=== PATIENT | female | born 1965 | race Caucasian/White ===

== ENCOUNTER 2017-12-18 08:43 | Emergency (ER) | payer MEDICAID ==
[~2017-12-18] VITALS: Ht 152.4 cm; Wt 64.4 kg
[2017-12-18 08:43] VITALS: BP_SYST 132
[2017-12-18] MEDS ORDERED: KETOROLAC TROMETHAMINE 60 MG/2 ML VIAL IM ONE (09:30)
[2017-12-18 09:31] LABS: BILIRUBIN,URINE NEGATIVE (NEGATIVE); BLOOD, URINE NEGATIVE (NEGATIVE); CLARITY/URINE CLEAR (CLEAR); COLOR,URINE YELLOW (YELLOW); GLUCOSE,URINE NEGATIVE (NEGATIVE); KETONES,URINE NEGATIVE (NEGATIVE); LEUKOCYTE ESTERASE ,URINE NEGATIVE (NEGATIVE); NITRITE, URINE NEGATIVE (NEGATIVE); PROTEIN URINE NEGATIVE (NEGATIVE); UROBILINOGEN,URINE 0.2 (0.2-1.0)
[2017-12-18 10:00] LABS: BASOPHILS % (AUTO) 0.4 % (0.0-2.0); EOSINOPHILS # (AUTO) 0.2 K/uL (0.0-0.4); EOSINOPHILS % (AUTO) 2.6 % (0.0-4.0); HEMATOCRIT 43.5 % (36-48); HEMOGLOBIN 14.2 g/dL (12.0-16.0); LYMPHOCYTES # (AUTO) 1.3 K/uL (1.0-5.5); LYMPHOCYTES % (AUTO) 16.1 % (20.5-51.5); MEAN CORPUSCULAR HEMOGLOBIN 30 pg (27-31); MEAN CORPUSCULAR HGB CONC 33 % (32-36); MEAN CORPUSCULAR VOLUME 92 fL (79.0-98.0); MONOCYTES # (AUTO) 0.3 K/uL (0.0-1.0); MONOCYTES % (AUTO) 4.3 % (1.7-9.3); NEUTROPHILS # (AUTO) 6.2 K/uL (1.8-7.7); NEUTROPHILS % (AUTO) 76.6 % (40.0-70.0); PLATELET COUNT (AUTO) 384 K/uL (130-430); RED BLOOD CELL COUNT(AUTO) 4.72 MIL/uL (4.2-6.2); RED CELL DISTRIBUTION WIDTH 12.3 % (9.0-15.0)
[2017-12-18 10:04] LABS: CALCIUM 9.9 mg/dL (8.4-11.0); CREATININE 0.77 mg/dL (0.55-1.30); POTASSIUM 3.4 mmol/L (3.5-5.1)
[2017-12-18 10:10] LABS: TOTAL BILIRUBIN 0.5 mg/dL (0.0-1.0)
[2017-12-18 10:53] VITALS: BP_SYST 128
== END 2017-12-18 10:53 | disposition home or self-care (01) ==
LOC: SED 08:43
DX: K52.9 Noninfective gastroenteritis and colitis, unspecified (principal); R19.00 Intra-abdominal and pelvic swelling, mass and lump, unspecified site; I10 Essential (primary) hypertension; Z90.710 Acquired absence of both cervix and uterus
CPT/HCPCS: 36415; 74176; 80053; 81003; 83690; 85025; 96372; 99285; J1885

== ENCOUNTER 2018-03-25 11:22 | Emergency (ER) | payer OTHER, MEDICAID ==
[~2018-03-25] VITALS: Ht 152.4 cm; Wt 59.9 kg
[2018-03-25 11:22] VITALS: BP_SYST 131
[2018-03-25 13:49] VITALS: BP_SYST 134
== END 2018-03-25 13:49 | disposition home or self-care (01) ==
LOC: SED 11:22
DX: S33.5XXA Sprain of ligaments of lumbar spine, initial encounter (principal); S23.9XXA Sprain of unspecified parts of thorax, initial encounter; J45.909 Unspecified asthma, uncomplicated; I10 Essential (primary) hypertension; F41.9 Anxiety disorder, unspecified; Z90.710 Acquired absence of both cervix and uterus; X58.XXXA Exposure to other specified factors, initial encounter; Y93.89 Activity, other specified; Y92.89 Other specified places as the place of occurrence of the external cause; Y99.8 Other external cause status
CPT/HCPCS: 72128; 72131; 99284

== ENCOUNTER 2018-05-17 22:41 | Emergency (ER) | payer OTHER, MEDICAID ==
[~2018-05-17] VITALS: Ht 154.9 cm; Wt 63.5 kg
[2018-05-17 23:05] VITALS: BP_SYST 139
[2018-05-17 23:46] LABS: BILIRUBIN,URINE NEGATIVE (NEGATIVE); BLOOD, URINE 3+ (NEGATIVE); CLARITY/URINE CLOUDY (CLEAR); COLOR,URINE RED (YELLOW); GLUCOSE,URINE NEGATIVE (NEGATIVE); KETONES,URINE TRACE (NEGATIVE); LEUKOCYTE ESTERASE ,URINE 2+ (NEGATIVE); NITRITE, URINE POSITIVE (NEGATIVE); PROTEIN URINE 3+ (NEGATIVE)
[2018-05-18 00:14] LABS: BACTERIA,URINE None Seen /HPF (None Seen); RBC,URINE >100 /HPF (0-3)
[2018-05-18] MEDS ORDERED: IBUPROFEN 800 MG TABLET PO ONE (00:15)
[2018-05-18] MEDS ORDERED: cefTRIAXone 1 GM VIAL IM ONE (00:15)
[2018-05-18 00:41] VITALS: BP_SYST 126
== END 2018-05-18 00:41 | disposition home or self-care (01) ==
LOC: SED 22:41
DX: N39.0 Urinary tract infection, site not specified (principal); J45.909 Unspecified asthma, uncomplicated; I10 Essential (primary) hypertension
CPT/HCPCS: 81000; 81025; 87086; 87186; 96372; 99284; J0696

== ENCOUNTER 2018-08-13 08:44 | Emergency (ER) | payer OTHER, MEDICAID ==
[~2018-08-13] VITALS: Ht 154.9 cm; Wt 63.5 kg
[2018-08-13 08:44] VITALS: BP_SYST 154
[2018-08-13] MEDS ORDERED: IPRATROPIUM BROM 0.5 MG/2.5 ML VIAL.NEB (ATROVENT) IH ONE (09:15)
[2018-08-13] MEDS ORDERED: ALBUTEROL SULFATE 0.083% 2.5 MG/3 ML VIAL.NEB IH ONE (09:15)
[2018-08-13 09:45] LABS: BASOPHILS # (AUTO) 0.1 K/uL (0.0-0.2); BASOPHILS % (AUTO) 0.7 % (0.0-2.0); EOSINOPHILS # (AUTO) 0.2 K/uL (0.0-0.4); EOSINOPHILS % (AUTO) 2.4 % (0.0-4.0); HEMATOCRIT 41.5 % (36-48); HEMOGLOBIN 13.8 g/dL (12.0-16.0); LYMPHOCYTES # (AUTO) 1.6 K/uL (1.0-5.5); LYMPHOCYTES % (AUTO) 21.2 % (20.5-51.5); MEAN CORPUSCULAR HEMOGLOBIN 31 pg (27-31); MEAN CORPUSCULAR HGB CONC 33 % (32-36); MEAN CORPUSCULAR VOLUME 93 fL (79.0-98.0); MONOCYTES # (AUTO) 0.3 K/uL (0.0-1.0); MONOCYTES % (AUTO) 4.1 % (1.7-9.3); NEUTROPHILS # (AUTO) 5.2 K/uL (1.8-7.7); NEUTROPHILS % (AUTO) 71.6 % (40.0-70.0); PLATELET COUNT (AUTO) 317 K/uL (130-430); RED BLOOD CELL COUNT(AUTO) 4.49 MIL/uL (4.2-6.2); RED CELL DISTRIBUTION WIDTH 12.7 % (9.0-15.0); WHITE BLOOD COUNT (AUTO) 7.4 K/uL (4.8-10.8)
[2018-08-13 09:56] LABS: CALCIUM 10.3 mg/dL (8.4-11.0); CREATININE 0.84 mg/dL (0.55-1.30); PROTHROMBIN TIME 9.8 SECS (9.5-12.5)
[2018-08-13] MEDS ORDERED: POTASSIUM CHLORIDE 20 MEQ TAB.PRT.SR PO ONE (10:00)
[2018-08-13 10:01] LABS: ALBUMIN 3.8 g/dL (3.4-4.8); TOTAL BILIRUBIN 0.8 mg/dL (0.0-1.0)
[2018-08-13 12:17] VITALS: BP_SYST 124
== END 2018-08-13 12:17 | disposition home or self-care (01) ==
LOC: SED 08:44
DX: R06.02 Shortness of breath (principal); E87.6 Hypokalemia; I10 Essential (primary) hypertension; E78.00 Pure hypercholesterolemia, unspecified; J45.909 Unspecified asthma, uncomplicated
CPT/HCPCS: 36415; 71045; 80053; 83880; 84484; 85025; 85379; 85610; 85730; 93005; 94640; 99285; J7613

== ENCOUNTER 2019-11-22 09:33 | Emergency (ER) | payer OTHER, MEDICAID ==
[~2019-11-22] VITALS: Ht 154.9 cm; Wt 63.5 kg
[~2019-11-22 09:33] MED LIST: ASPI-1153 PO; LISI10TA5 PO; MONT10TA25 PO; SERT50TA PO
[2019-11-22 10:14] VITALS: BP_SYST 149
[2019-11-22 11:29] VITALS: BP_SYST 149
== END 2019-11-22 11:29 | disposition home or self-care (01) ==
LOC: SED 09:33
DX: K52.9 Noninfective gastroenteritis and colitis, unspecified (principal); J45.909 Unspecified asthma, uncomplicated; I10 Essential (primary) hypertension; E78.00 Pure hypercholesterolemia, unspecified; E87.6 Hypokalemia; Z90.710 Acquired absence of both cervix and uterus; Z79.82 Long term (current) use of aspirin; Z79.899 Other long term (current) drug therapy
CPT/HCPCS: 99283

== ENCOUNTER 2021-05-14 15:56 | Emergency (ER) | payer OTHER, MEDICAID ==
[~2021-05-14] VITALS: Ht 154.9 cm; Wt 65.8 kg
[~2021-05-14 15:56] MED LIST changes: -ASPI-1153 PO; +ASPI-1393 PO; +LISI10TA29 PO; -LISI10TA5 PO; -MONT10TA25 PO; +MONT10TA33 PO
[2021-05-14 16:00] VITALS: BP_SYST 131
[2021-05-14] MEDS ORDERED: DILTIAZEM HCL 60 MG TABLET PO ONE (16:15)
[2021-05-14] MEDS ORDERED: DILTIAZEM HCL 25 MG/5 ML VIAL IVP ONE (16:15)
[2021-05-14] MEDS ORDERED: ATENOLOL 50 MG TABLET (TENORMIN) PO ONE (16:30)
[2021-05-14 16:51] LABS: BASOPHILS % (AUTO) 0.5 % (0.0-2.0); EOSINOPHILS # (AUTO) 0.3 K/uL (0.0-0.4); EOSINOPHILS % (AUTO) 3.6 % (0.0-4.0); HEMATOCRIT 38.3 % (36-48); HEMOGLOBIN 13.3 g/dL (12.0-16.0); LYMPHOCYTES # (AUTO) 1.5 K/uL (1.0-5.5); LYMPHOCYTES % (AUTO) 19.5 % (20.5-51.5); MEAN CORPUSCULAR HEMOGLOBIN 31 pg (27-31); MEAN CORPUSCULAR HGB CONC 35 % (32-36); MEAN CORPUSCULAR VOLUME 90 fL (79.0-98.0); MONOCYTES # (AUTO) 0.4 K/uL (0.0-1.0); MONOCYTES % (AUTO) 5.7 % (1.7-9.3); NEUTROPHILS # (AUTO) 5.4 K/uL (1.8-7.7); NEUTROPHILS % (AUTO) 70.7 % (40.0-70.0); PLATELET COUNT (AUTO) 250 K/uL (130-430); RED BLOOD CELL COUNT(AUTO) 4.25 MIL/uL (4.2-6.2); RED CELL DISTRIBUTION WIDTH 13.6 % (9.0-15.0); WHITE BLOOD COUNT (AUTO) 7.6 K/uL (4.8-10.8)
[2021-05-14 17:10] LABS: CALCIUM 9.6 mg/dL (8.4-11.0); CREATININE 0.92 mg/dL (0.55-1.30)
[2021-05-14 17:24] LABS: ALBUMIN 3.7 g/dL (3.4-4.8); TOTAL BILIRUBIN 0.6 mg/dL (0.0-1.0)
[2021-05-14 17:27] LABS: POTASSIUM 2.6 mmol/L (3.5-5.1)
[2021-05-14 17:32] LABS: INR 0.9 (0.8-1.2); PROTHROMBIN TIME 9.9 SECS (9.5-12.5)
[2021-05-14] MEDS ORDERED: ATEN-41 PO (18:12)
[2021-05-14] MEDS ORDERED: KCL 20 mEq in 100 mL (PREMIX) 100 ML IV ONE (18:15)
[2021-05-14] MEDS ORDERED: POTASSIUM CHLORIDE 20 MEQ/PKT PACKET PO ONE (18:15)
[2021-05-14] MEDS ORDERED: NACL 0.9% 1,000 ML IV ONE (19:00)
[2021-05-14 20:57] VITALS: BP_SYST 104
== END 2021-05-14 20:57 | disposition home or self-care (01) ==
LOC: SED 15:56
DX: I48.91 Unspecified atrial fibrillation (principal); E87.6 Hypokalemia; I10 Essential (primary) hypertension; J45.909 Unspecified asthma, uncomplicated; E78.00 Pure hypercholesterolemia, unspecified; Z79.899 Other long term (current) drug therapy
CPT/HCPCS: 36415; 71045; 80053; 83880; 84484; 84703; 85025; 85610; 85730; 93005; 96365; 99285; J3480

== ENCOUNTER 2021-12-09 10:52 | Emergency (ER) | payer OTHER, MEDICAID ==
[~2021-12-09] VITALS: Ht 154.9 cm; Wt 64.4 kg
[~2021-12-09 10:52] MED LIST changes: +ATEN-41 PO; +MONT-40 PO; -MONT10TA33 PO
[2021-12-09 10:55] VITALS: BP_SYST 142
[2021-12-09] MEDS ORDERED: HYDROcodone/ACETAMIN 10-325 MG TAB PO ONE (12:00)
[2021-12-09 13:16] VITALS: BP_SYST 139
== END 2021-12-09 13:16 | disposition home or self-care (01) ==
LOC: SED 10:52
DX: S83.91XA Sprain of unspecified site of right knee, initial encounter (principal); K08.89 Other specified disorders of teeth and supporting structures; I10 Essential (primary) hypertension; J45.909 Unspecified asthma, uncomplicated; E78.00 Pure hypercholesterolemia, unspecified; Z79.899 Other long term (current) drug therapy; X50.9XXA Other and unspecified overexertion or strenuous movements or postures, initial encounter; Y93.89 Activity, other specified; Y92.89 Other specified places as the place of occurrence of the external cause; Y99.8 Other external cause status
CPT/HCPCS: 73564; 99283

== ENCOUNTER 2021-12-10 18:04 | Emergency (ER) | payer OTHER, MEDICAID ==
[~2021-12-10] VITALS: Ht 154.9 cm; Wt 63.5 kg
[2021-12-10 18:26] VITALS: BP_SYST 137
--- NOTE | 2021-12-10 18:31 | NUR ---
to room 8 triaged vss. md to see
[2021-12-10] MEDS ORDERED: IBUPROFEN 600 MG TABLET PO ONE (19:00)
--- NOTE | 2021-12-10 19:01 | NUR ---
report to yessi moreno
[2021-12-10 20:26] LABS: HEMOGLOBIN 13.3 g/dL (12.0-16.0); MEAN CORPUSCULAR HEMOGLOBIN 30 pg (27-31)
[2021-12-10] MEDS ORDERED: LIDOCAINE 1% 10 MG/ML, 20 ML MDV INJ ONE (20:30)
--- NOTE | 2021-12-10 20:31 | NUR ---
MD AT BEDSIDE TO TAP RT KNEE.
[2021-12-10 20:37] LABS: BASOPHILS % (AUTO) 0.5 % (0.0-2.0); EOSINOPHILS # (AUTO) 0.2 K/uL (0.0-0.4); EOSINOPHILS % (AUTO) 2.4 % (0.0-4.0); HEMATOCRIT 39.2 % (36-48); LYMPHOCYTES # (AUTO) 1.5 K/uL (1.0-5.5); LYMPHOCYTES % (AUTO) 17.9 % (20.5-51.5); MEAN CORPUSCULAR HGB CONC 34 % (32-36); MEAN CORPUSCULAR VOLUME 88 fL (79.0-98.0); MONOCYTES # (AUTO) 0.5 K/uL (0.0-1.0); MONOCYTES % (AUTO) 6.2 % (1.7-9.3); PLATELET COUNT (AUTO) 247 K/uL (130-430); RED BLOOD CELL COUNT(AUTO) 4.43 MIL/uL (4.2-6.2); RED CELL DISTRIBUTION WIDTH 13.6 % (9.0-15.0); WHITE BLOOD COUNT (AUTO) 8.2 K/uL (4.8-10.8)
--- NOTE | 2021-12-10 20:52 | NUR ---
PT UNABLE TO TOLERATE PROCEDURE. MD UNABLE TO PROCEED AFTER INJECTING LIDOCAINE.
[2021-12-10 21:47] LABS: ERYTHROCYTE SEDIMENTATION RATE 36 MM/HR (0-20)
--- NOTE | 2021-12-10 22:01 | NUR ---
Patient given written and verbal discharge instructions and verbalizes understanding. ER MD discussed with patient the results and treatment provided. Patient in stable condition. Patient educated on pain management and to follow up with PMD. Pain Scale 8.
[2021-12-10 22:02] VITALS: BP_SYST 129
== END 2021-12-10 22:02 | disposition home or self-care (01) ==
LOC: SED 18:04
DX: M25.561 Pain in right knee (principal); R50.9 Fever, unspecified; I10 Essential (primary) hypertension; J45.909 Unspecified asthma, uncomplicated; Z79.82 Long term (current) use of aspirin; Z79.899 Other long term (current) drug therapy
CPT/HCPCS: 36415; 73560; 85025; 85651; 87040; 99284; J2001

== ENCOUNTER 2021-12-11 09:59 | Emergency (ER) | payer OTHER, MEDICAID ==
[~2021-12-11] VITALS: Ht 154.9 cm; Wt 64.4 kg
[2021-12-11 10:40] VITALS: BP_SYST 142
--- NOTE | 2021-12-11 11:26 | NUR ---
Patient to ER bed H1 to gown for evaluation. Side rails up.
--- NOTE | 2021-12-11 11:27 | NUR ---
Pt brought by self, A&Ox4, pt presents to ER for follow up / R Knee pain swelling, pt VSS, afebrile, respirations even and unlabored.
--- NOTE | 2021-12-11 11:32 | NUR ---
Dr Napier evaluating patient at bedside
[2021-12-11 11:40] VITALS: BP_SYST 142
--- NOTE | 2021-12-11 11:41 | NUR ---
Patient given written and verbal discharge instructions and verbalizes understanding. ER MD discussed with patient the results and treatment provided. Patient in stable condition. ID arm band removed. No Rx given. Patient educated on pain management and to follow up with PMD. Pain Scale 2/10. Opportunity for questions provided and answered. Medication side effect fact sheet provided.
== END 2021-12-11 11:40 | disposition home or self-care (01) ==
LOC: SED 09:59
DX: S86.811A Strain of other muscle(s) and tendon(s) at lower leg level, right leg, initial encounter (principal); K08.89 Other specified disorders of teeth and supporting structures; I10 Essential (primary) hypertension; J45.909 Unspecified asthma, uncomplicated; Z79.899 Other long term (current) drug therapy; X50.9XXA Other and unspecified overexertion or strenuous movements or postures, initial encounter; Y93.89 Activity, other specified; Y92.89 Other specified places as the place of occurrence of the external cause; Y99.8 Other external cause status
CPT/HCPCS: 99281

== ENCOUNTER 2023-01-28 19:19 | Emergency (ER) | payer OTHER, MEDICAID ==
[~2023-01-28] VITALS: Ht 154.9 cm; Wt 64.9 kg
[2023-01-28 19:29] VITALS: BP_SYST 129
--- NOTE | 2023-01-28 19:35 | NUR ---
Patient to ER bed 06 to gown for evaluation. Side rails up. Report given to ABBIE Cole.
--- NOTE | 2023-01-28 19:43 | NUR ---
LAURA SYED Kwaw at bedside.
--- NOTE | 2023-01-28 19:45 | NUR ---
Report received from ABBIE Welch; assuming care of patient at this time.
--- NOTE | 2023-01-28 19:50 | NUR ---
Patient presents to ED from home with c/o near syncope x1 today. Patient reports pain 0/10 at this time. Patient states "I've been going through a lot of stress since Friday when my son went into the hospital. I'm not sure if its anxiety or if my heart was just racing. But I've had one episode of Afib in the past and I just wanted to come in and make sure I'm okay. I fine better now." Patient A/Ox4, VSS, ambulatory, resp even and unlabored. Skin warm, dry, intact, color wnl for ethnicity. Patient resting comfortably in bed with safety precautions in place. Patient's at bedside. Nad noted at this time. ER MD Myers made aware.
[2023-01-28 20:12] LABS: BASOPHILS # (AUTO) 0.1 K/uL (0.0-0.2); BASOPHILS % (AUTO) 0.6 % (0.0-2.0); EOSINOPHILS # (AUTO) 0.3 K/uL (0.0-0.4); HEMATOCRIT 37.3 % (36-48); HEMOGLOBIN 12.9 g/dL (12.0-16.0); LYMPHOCYTES # (AUTO) 1.9 K/uL (1.0-5.5); MEAN CORPUSCULAR HEMOGLOBIN 31 pg (27-31); MEAN CORPUSCULAR HGB CONC 35 % (32-36); MEAN CORPUSCULAR VOLUME 89 fL (79.0-98.0); MONOCYTES # (AUTO) 0.6 K/uL (0.0-1.0); MONOCYTES % (AUTO) 7.1 % (1.7-9.3); NEUTROPHILS # (AUTO) 5.7 K/uL (1.8-7.7); NEUTROPHILS % (AUTO) 66.3 % (40.0-70.0); PLATELET COUNT (AUTO) 275 K/uL (130-430); RED BLOOD CELL COUNT(AUTO) 4.18 MIL/uL (4.2-6.2); RED CELL DISTRIBUTION WIDTH 13.7 % (9.0-15.0); WHITE BLOOD COUNT (AUTO) 8.6 K/uL (4.8-10.8)
--- NOTE | 2023-01-28 20:15 | NUR ---
Patient resting comfortably in bed with safety precautions in place. NAD noted at this time.
[2023-01-28 20:30] LABS: ALBUMIN 3.7 g/dL (3.4-4.8); CALCIUM 8.9 mg/dL (8.4-11.0); TOTAL BILIRUBIN 0.6 mg/dL (0.0-1.0)
[2023-01-28] MEDS ORDERED: POTASSIUM CHLORIDE 20 MEQ/PKT PACKET PO ONE (20:45)
[2023-01-28] MEDS ORDERED: POTA-178 PO (21:13)
[2023-01-28 21:45] VITALS: BP_SYST 130
--- NOTE | 2023-01-28 21:45 | NUR ---
Patient given written and verbal discharge instructions and verbalizes understanding. ER MD discussed with patient the results and treatment provided. Patient in stable condition. ID arm band removed. Patient educated on pain management and to follow up with PMD. Pain Scale 0/10. Opportunity for questions provided and answered. Patient in stable condition upon discharge accompanied by significant other. Nad noted at this time.
== END 2023-01-28 21:45 | disposition home or self-care (01) ==
LOC: SED 19:19
DX: E87.6 Hypokalemia (principal); R55 Syncope and collapse; R42 Dizziness and giddiness; J45.909 Unspecified asthma, uncomplicated; I10 Essential (primary) hypertension; Z79.899 Other long term (current) drug therapy
CPT/HCPCS: 36415; 80053; 82962; 85025; 93005; 99284